=== PATIENT | male | born 1985 | race Caucasian/White ===

== ENCOUNTER 2017-03-27 14:48 | Inpatient (IN) | payer MEDICAID ==
[~2017-03-27] VITALS: Ht 182.9 cm; Wt 73.9 kg
--- NOTE | 2017-03-27 14:57 | NUR ---
BBRA [id number] FROM [place]: ALOC, S/P TAKING KLONOPIN PO UNKNOWN QUANTITY. PLACED ON MONITOR. AWAITING MD ORDER
[2017-03-27 15:18] LABS: BASOPHILS % (AUTO) 0.2 % (0.0-2.0); EOSINOPHILS # (AUTO) 0.3 /CMM (0.0-0.7); HEMATOCRIT 39 % (39-51); LYMPHOCYTES # (AUTO) 2.9 /CMM (0.8-4.8); MEAN CORPUSCULAR HEMOGLOBIN 31 PG (26.0-33.0); MEAN CORPUSCULAR HGB CONC 33 g/dl (31.0-36.0); MEAN CORPUSCULAR VOLUME 94 fL (80-96); MONOCYTES # (AUTO) 1.1 /CMM (0.1-1.30); MONOCYTES % (AUTO) 11.8 % (2.0-12.0); NEUTROPHILS # (AUTO) 5.2 /CMM (1.8-8.9); PLATELET COUNT (AUTO) 302 /CMM (150-450); RDW COEFFICIENT OF VARIATION 12.5 (11.5-15.0); RED BLOOD CELL COUNT(AUTO) 4.13 MIL/uL (4.5-6.0); WHITE BLOOD COUNT (AUTO) 9.5 K/uL (4.3-11.0)
[2017-03-27 15:35] LABS: CALCIUM, SERUM 8.9 mg/dL (8.5-10.1); CARBON DIOXIDE 31 mmol/L (21-32); CHLORIDE 104 mmol/L (98-107); CREATININE 0.8 mg/dL (0.6-1.3); GLUCOSE 82 mg/dL (74-106); POTASSIUM 3.9 mmol/L (3.5-5.1); SODIUM SERUM 139 mmol/L (136-145); UREA NITROGEN, BLOOD 12 mg/dL (7-18)
[2017-03-27 15:45] LABS: ALANINE AMINOTRANSFERASE 20 U/L (12-78); ALBUMIN 3.2 g/dL (3.4-5.0); ALCOHOL, BLOOD < 3 mg/dL (0-0); ALKALINE PHOSPHATASE 56 U/L (46-116); ASPARTATE AMINOTRANSFERASE 17 U/L (15-37); BILIRUBIN,TOTAL 0.3 mg/dL (0.2-1.0); SALICYLATE 3.3 mg/dL (2.8-20.0); TOTAL PROTEIN, SERUM 6.7 g/dL (6.4-8.2)
[2017-03-27 15:46] LABS: ACETAMINOPHEN < 2 ug/ml (10-30)
--- NOTE | 2017-03-27 17:13 | NUR ---
PT SLEEPING AROUSABLE GOES BACK TO SLEEP. VSS.
--- NOTE | 2017-03-27 17:16 | NUR ---
PT UNABLE TO PROVIDE URINE AT THIS TIME SLEEPING DR AGUILAR MADE AWARE
--- NOTE | 2017-03-27 17:40 | NUR ---
URINE SAMPLE COLLECTED SENT TO LAB
[2017-03-27 17:43] LABS: APPEARANCE,URINE Clear (CLEAR); BILIRUBIN,URINE Negative (NEGATIVE); BLOOD, URINE Negative Ery/uL (NEGATIVE); COLOR,URINE Light yellow (YELLOW); KETONES,URINE Negative (NEGATIVE); LEUKOCYTE ESTERASE ,URINE Negative (NEGATIVE); NITRITE, URINE Negative (NEGATIVE); PROTEIN,URINE Negative (NEGATIVE); UGLUCOSE Negative (NEGATIVE); UROBILINOGEN,URINE 0.2 EU/dL (0.2)
--- NOTE | 2017-03-27 19:30 | NUR ---
SPOKE WITH ANA LUISA FROM POISON CONTROL AND HE SAID "PATIENT HAS PAST THE PEAK POINT OF THE MEDICATION, HOWEVER PATIENT STILL NEEDS TO BE OBSERVED CLOSELY ESPECIALLY FOR SIGNS AND SYMPTOMS OF RESPIRATORY DERESSION. PATIENT IS SLEEPING AT THIS TIME. CARDIAC AND VS MONITOR ONGOING. BREATHING EVEN AND UNLABORED. SATTING AT 98% ON 2L NC O2.
[2017-03-27 20:05] VITALS: BP 108/71
--- NOTE | 2017-03-27 20:30 | NUR ---
RN ADMITTING NOTES RECEIVED PATIENT FROM ER, IN A GURNEY. PATIENT OBSERVED TO BE AWAKE, ALERT AND ORIENTED X2-3. PATIENT OBSERVED TO BE ILLOGICAL, A POOR HISTORIAN. PATIENT REORIENTED NEEDED. CONNECTED TO TELE, PATIENT IS SR WITH HR OF 98. ON ROOM AIR WITH 99-100% SATURATION, DENIES ANY PAIN AND DISCOMFORT, NO DISTRESS. SKIN IS INTACT. VS STABLE, AFEBRILE AND NO DISTRESS. SAFETY AND COMFORT ENSURED. BED IN LOW AND LOCKED POSITION. BED ALARM IN PLACE FOR FALL AND SAFETY PRECAUTIONS. CALL LIGHT IN REACH. FOLLOWED UP WITH EUGENIO SOOD DNP, FOR THE PATIENT'S ADMIT ORDERS.
[2017-03-27] MEDS ORDERED: IV NS 0.9% 1,000 ML IV PRN (21:00)
[2017-03-27] MEDS ORDERED: MAGNESIUM HYDROXIDE 30 ML UDC PO PRN (21:00)
[2017-03-27] MEDS ORDERED: ACETAMINOPHEN 325 MG TABLET PO PRN (21:00)
[2017-03-27] MEDS ORDERED: Z GUARD REMEDY 2 OZ OINT TP PRN (21:00)
--- NOTE | 2017-03-27 21:00 | NUR ---
RN NOTES PATIENT OBSERVED TO BE MORE AWAKE, RESTLESS AND CONSTANTLY GETTING OUT OF BED. PATIENT ASSISTED WITH ADLS NEEDED. STEADY GAIT NOTED. PATIENT INSISTING ON GOING OUT TO SMOKE. EUGENIO SOOD DNP, IN THE UNIT, PATIENT ALSO INSISTED TO EUGENIO SOOD TO GO OUT TO SMOKE. EUGENIO SOOD, GAVE CONSENT THAT PATIENT MAY SMOKE THE PATIENT REFUSED NICOTINE PATCH. PATIENT ABLE TO AMBULATE WITH STEADY GAIT, ACCOMPANIED BY DRIVE MAN OUTSIDE FOR SMOKE BREAK.
--- NOTE | 2017-03-27 23:15 | NUR ---
RN NOTES Patient insisting to go home, stating "I want to go home. I will go home to my dad's." Patient observed to be anxious and restless. Provided patient with reassurance as needed. Primary nurse and Charge nurse approached patient and explained the risks of going AMA. Patient verbalized understanding and still insisting to go home and go AMA. Inquired to patient his dad's number, according to patient his "dad lost his phone". Called the contact information indicated on the patient's facesheet, the number is non-working. Informed Leandro Cruz DNP, of the patient's insistence to go AMA, order received that patient may go AMA, noted. Notified Nursing Body Maker Machine Setter, Zahira, of the patient going AMA. Patient signed AMA form, filed in chart. [id number], patient left unit, escorted by PUBLIC RELATIONS OFFICER outside the hospital premises. Patient not in any acute distress. Incident report done, [id number].
[2017-03-28] MEDS ORDERED: PANTOPRAZOLE 40 MG TABLET.DR PO SCH (07:30)
== END 2017-03-27 23:10 | disposition left against medical advice (07) | DRG 812 ==
LOC: ER 14:52 → TELE-TD 19:50 → TELE1 21:32
PROVIDERS: ADMIT Nurse Practitioner Acute Care; ATTEND Nurse Practitioner Acute Care
DX: T42.4X1A Poisoning by benzodiazepines, accidental (unintentional), initial encounter (principal); G92 Toxic encephalopathy; Y92.009 Unspecified place in unspecified non-institutional (private) residence as the place of occurrence of the external cause; F20.9 Schizophrenia, unspecified; R82.6 Abnormal urine levels of substances chiefly nonmedicinal as to source
CPT/HCPCS: 36415; 80048-TC; 80076-TC; 80305; 81000-TC; 85025-TC; 87081-TC; A4606; G0480; J7030; Z7610